=== PATIENT | female | born 1945 | race Caucasian/White ===

== ENCOUNTER 2017-09-13 07:25 | Day surgery (SDC) | payer OTHER ==
[~2017-09-13] VITALS: Ht 165.1 cm; Wt 112.0 kg
[~2017-09-13 07:25] MED LIST: ALBU90OI61 INH; AZIT250 PO; HYDACE5 PO; LORPSEER24 PO; PRED20 PO
== END 2017-09-13 14:32 | disposition home or self-care (01) ==
LOC: MHTC 07:25
PROC: 0JH606Z Insertion of Pacemaker, Dual Chamber into Chest Subcutaneous Tissue and Fascia, Open Approach (ICD-10-PCS; principal; 2017-09-13)
PROC: 0JPT0PZ Removal of Cardiac Rhythm Related Device from Trunk Subcutaneous Tissue and Fascia, Open Approach (ICD-10-PCS; principal; 2017-09-13)
DX: Z45.010 Encounter for checking and testing of cardiac pacemaker pulse generator [battery] (principal); K21.9 Gastro-esophageal reflux disease without esophagitis; Z87.891 Personal history of nicotine dependence; I10 Essential (primary) hypertension
CPT/HCPCS: 33228; 93005; 93010; 99152; 99153; C1785; J0690; J1644; J2250; J2405; J3010; J7030; J7040

== ENCOUNTER → 2019-09-12 | Outpatient (CLI) | payer OTHER | END | disposition home or self-care (01) | LOC: LAB SHORT 15:49 → LAB EV 15:49 | DX: R31.21 Asymptomatic microscopic hematuria (principal) | CPT/HCPCS: 87086 ==

== ENCOUNTER 2020-07-25 13:46 | Emergency (ER) | payer OTHER ==
[~2020-07-25] VITALS: Ht 167.6 cm; Wt 97.5 kg
[2020-07-25 14:17] LABS: BASOPHILS ABSOLUTE AUTO 0.04 K/mm3 (0.00-0.23); BASOPHILS PERCENT AUTO 0 % (0-2); EOSINOPHILS ABSOLUTE AUTO 0.12 K/mm3 (0.00-0.68); EOSINOPHILS PERCENT AUTO 1 % (0-6); Hematocrit 41.5 % (33.0-51.0); Hemoglobin 12.7 g/dL (11.5-16.0); IMMATURE GRAN ABSOLUTE AUTO 0.03 K/mm3 (0.00-0.10); IMMATURE GRAN PERCENT AUTO 0 % (0-1); LYMPHOCYTES ABSOLUTE AUTO 2.13 K/mm3 (0.84-5.20); LYMPHOCYTES PERCENT AUTO 22 % (21-46); MONOCYTES ABSOLUTE AUTO 0.58 K/mm3 (0.16-1.47); MONOCYTES PERCENT AUTO 6 % (4-13); Mean Corpuscular HGB 27.9 pg (26.0-34.0); Mean Corpuscular HGB Conc 30.6 g/dL (31.5-36.5); Mean Corpuscular Volume 91 fL (80-100); Mean Platelet Volume 9.3 fL (9.1-12.4); NEUTROPHILS ABSOLUTE AUTO 6.81 K/mm3 (1.96-9.15); NEUTROPHILS PERCENT AUTO 70 % (41-73); Platelet Count 391 K/mm3 (150-400); RDW Coefficient Variation 14.2 % (11.7-14.2); RDW Standard Deviation 47.7 fL (35.1-46.3); Red Blood Cell Count 4.56 M/mm3 (3.80-5.20); White Blood Cell Count 9.71 K/mm3 (4.00-11.30)
[2020-07-25 14:35] LABS: Alanine Aminotransfer (ALT/SGP 17 U/L (12-78); Albumin, Blood 3.1 g/dL (3.4-5.0); Albumin/Globulin Ratio 0.8 (0.8-1.8); Alk Phos 84 U/L (50-136); Anion Gap 7 mmol/L (6-16); Aspartate Aminotrans (AST/SGOT 17 U/L (12-37); Bilirubin, Total 0.7 mg/dL (0.1-1.0); Blood Urea Nitrogen 15 mg/dL (8-24); Bun/Creatinine Ratio 18.3 (12.0-20.0); CO2, Blood 26 mmol/L (21-32); Calcium, Blood 8.3 mg/dL (8.5-10.1); Chloride, Blood 111 mmol/L (98-108); Creatinine, Blood 0.82 mg/dL (0.40-1.00); Globulin, Blood 3.8 g/dL (2.2-4.0); Glomerular Filtration Rate >60 (60-); Glucose, Blood 110 mg/dL (70-99); Potassium, Blood 3.7 mmol/L (3.5-5.5); Sodium, Blood 144 mmol/L (136-145); Total Protein, Blood 6.9 g/dL (6.4-8.2)
[2020-07-25] MEDS ORDERED: GARLIC200 MG PO (15:30)
[2020-07-25] MEDS ORDERED: MULTI-VITAMIN1 EAC2 PO (15:30)
[2020-07-25] MEDS ORDERED: CALCIUM CIT 311 EACH PO (15:31)
[2020-07-25 16:26] LABS: Source, Urine Clean Catch
[2020-07-25 16:31] LABS: Appearance, Urine Clear (Clear); Bilirubin, Urine Neg (Neg); Blood, Urine 3+ (Neg); Color, Urine Yellow (P-Yellow); Glucose Qualitative, Urine Neg (Neg); Ketones, Urine 2+ (Neg); Leukocyte Esterase, Urine Neg (Neg); Nitrite, Urine Neg (Neg); Protein, Urine Neg (Neg); Urobilinogen, Urine NORM (Normal)
[2020-07-25 16:41] LABS: Bacteria Not Seen /hpf; Squamous Epithelial Cells Rare /hpf (Few); White Blood Cells, Urine Not Seen /hpf (0-5)
[2020-10-23] MEDS ORDERED: MULVITA PO (16:29)
[2020-10-23] MEDS ORDERED: XARELTO20 MG PO ×2 (16:30)
[2020-11-20] MEDS ORDERED: Ondansetron Odt8 MG SL (12:40)
[2020-11-20] MEDS ORDERED: MULVITA PO (12:40)
== END 2020-07-25 18:50 | disposition home or self-care (01) ==
LOC: ER 13:46
PROVIDERS: Physician Assistant
DX: K92.1 Melena (principal); K64.9 Unspecified hemorrhoids; Z87.891 Personal history of nicotine dependence
CPT/HCPCS: 36415; 80053; 81001; 82272; 84484; 85025; 86850; 86900; 86901; 93005; 93010; 99283-25

== ENCOUNTER → 2020-08-25 | Outpatient (CLI) | payer OTHER ==
[~2020-08-25] MED LIST changes: +CALCIUM CIT 311 EACH PO; +GARLIC200 MG PO; +Garlic500 MG PO; +LOPE2C PO; +MULTI-VITAMIN1 EAC2 PO; +MULVITA PO; +Ondansetron Odt8 MG SL; +UBID10 PO; +VITAMIN D3 PO; +XARELTO15 M1 PO; +XARELTO20 MG PO
== END | disposition home or self-care (01) ==
LOC: PLD 14:40 → LAB SHORT 14:40
DX: C44.319 Basal cell carcinoma of skin of other parts of face (principal)
CPT/HCPCS: 88305

== ENCOUNTER 2020-09-12 11:45 | Inpatient (IN) | payer OTHER, MEDICARE ==
[~2020-09-12] VITALS: Ht 167.6 cm; Wt 94.0 kg
[~2020-09-12 11:45] MED LIST changes: -Garlic500 MG PO; -LOPE2C PO; -MULVITA PO; -Ondansetron Odt8 MG SL; -UBID10 PO; -VITAMIN D3 PO; -XARELTO15 M1 PO; -XARELTO20 MG PO
[2020-09-12 12:46] LABS: BASOPHILS ABSOLUTE AUTO 0.04 K/mm3 (0.00-0.23); BASOPHILS PERCENT AUTO 0 % (0-2); EOSINOPHILS ABSOLUTE AUTO 0.08 K/mm3 (0.00-0.68); EOSINOPHILS PERCENT AUTO 1 % (0-6); Hematocrit 41.6 % (33.0-51.0); Hemoglobin 13.1 g/dL (11.5-16.0); IMMATURE GRAN ABSOLUTE AUTO 0.05 K/mm3 (0.00-0.10); IMMATURE GRAN PERCENT AUTO 0 % (0-1); LYMPHOCYTES ABSOLUTE AUTO 1.59 K/mm3 (0.84-5.20); LYMPHOCYTES PERCENT AUTO 11 % (21-46); MONOCYTES ABSOLUTE AUTO 0.64 K/mm3 (0.16-1.47); MONOCYTES PERCENT AUTO 4 % (4-13); Mean Corpuscular HGB 27.3 pg (26.0-34.0); Mean Corpuscular HGB Conc 31.5 g/dL (31.5-36.5); Mean Corpuscular Volume 87 fL (80-100); Mean Platelet Volume 9.4 fL (9.1-12.4); NEUTROPHILS PERCENT AUTO 84 % (41-73); Platelet Count 373 K/mm3 (150-400); RDW Coefficient Variation 14.4 % (11.7-14.2); RDW Standard Deviation 45.5 fL (35.1-46.3); Red Blood Cell Count 4.79 M/mm3 (3.80-5.20)
[2020-09-12 13:06] LABS: Alanine Aminotransfer (ALT/SGP 17 U/L (12-78); Albumin/Globulin Ratio 0.8 (0.8-1.8); Alk Phos 82 U/L (50-136); Anion Gap 6 mmol/L (6-16); Aspartate Aminotrans (AST/SGOT 14 U/L (12-37); Bilirubin, Total 0.9 mg/dL (0.1-1.0); Blood Urea Nitrogen 9 mg/dL (8-24); Bun/Creatinine Ratio 10.3 (12.0-20.0); CO2, Blood 27 mmol/L (21-32); Calcium, Blood 8.8 mg/dL (8.5-10.1); Chloride, Blood 108 mmol/L (98-108); Creatinine, Blood 0.88 mg/dL (0.40-1.00); Glomerular Filtration Rate >60 (60-); Glucose, Blood 175 mg/dL (70-99); Potassium, Blood 4.1 mmol/L (3.5-5.5); Sodium, Blood 141 mmol/L (136-145); Troponin I 0.217 ng/mL (0.000-0.040)
[2020-09-12] MEDS ORDERED: UBID10 PO (14:20)
[2020-09-12 14:52] LABS: International Normalized Ratio 1.02; Prothrombin Time Results 10.9 Sec (9.7-11.5)
[2020-09-12 15:19] LABS: Influenza A, PCR NEGATIVE (NEGATIVE); Influenza B, PCR NEGATIVE (NEGATIVE); Resp Syncytial Virus, PCR NEGATIVE (NEGATIVE); SARS-Cov-2 (COVID-19) PCR, MMC NEGATIVE (NEGATIVE)
--- NOTE | 2020-09-12 17:05 | NUR ---
ECHOCARDIOGRAM COMPLETE
--- NOTE | 2020-09-12 18:35 | NUR ---
ADMIT TO PCU/SHIFT SUMMARY: ADMIT TO PCU AT 1752 VIA GURNEY. PT ON ROOM AIR SATING ABOVE 92%. TELE SHOWING 100% VENTRICULAR PACED AT 95. ALERT AND ORIENTED X4. DENIES ANY PAIN. NO CURRENT CHEST PAIN OR SOB. PT STATES SHE ONLY HAD THE EPISODE OF SOB PRIOR TO COMING INTO THE ER. VITAL SIGNS STABLE. HEPARIN AND NS INFUSING. PT ORIENTED TO ROOM, CALL LIGHT AND EDUCATION ON FALL PREVENTION. PT EDUCATED ABOUT PULMONARY EMBOLI AND PURPOSE OF HEPARIN. WILL CONTINUE TO MONITOR AND REPORT OFF.
[2020-09-13 04:22] LABS: BASOPHILS ABSOLUTE AUTO 0.04 K/mm3 (0.00-0.23); BASOPHILS PERCENT AUTO 0 % (0-2); EOSINOPHILS PERCENT AUTO 1 % (0-6); Hematocrit 35.8 % (33.0-51.0); Hemoglobin 11.3 g/dL (11.5-16.0); IMMATURE GRAN ABSOLUTE AUTO 0.04 K/mm3 (0.00-0.10); IMMATURE GRAN PERCENT AUTO 0 % (0-1); LYMPHOCYTES ABSOLUTE AUTO 2.96 K/mm3 (0.84-5.20); LYMPHOCYTES PERCENT AUTO 26 % (21-46); MONOCYTES ABSOLUTE AUTO 0.63 K/mm3 (0.16-1.47); MONOCYTES PERCENT AUTO 6 % (4-13); Mean Corpuscular HGB 27.2 pg (26.0-34.0); Mean Corpuscular HGB Conc 31.6 g/dL (31.5-36.5); Mean Corpuscular Volume 86 fL (80-100); Mean Platelet Volume 9.6 fL (9.1-12.4); NEUTROPHILS ABSOLUTE AUTO 7.43 K/mm3 (1.96-9.15); NEUTROPHILS PERCENT AUTO 66 % (41-73); Platelet Count 310 K/mm3 (150-400); RDW Coefficient Variation 14.7 % (11.7-14.2); Red Blood Cell Count 4.15 M/mm3 (3.80-5.20)
--- NOTE | 2020-09-13 04:31 | NUR ---
SHIFT SUMMARY NO ACUTE CHANGES THIS SHIFT. VSS. HAS DENIED ANY EPISODE OF DYSPNEA/CP. REMAINS AXO. 100% V PACED. ON RA. HEPARIN GTT INFUSING, TITRATING PER PHARMACY. PT TO BSC MULTIPLE TIMES THIS SHIFT WITHOUT INCIDENT. ITHERWISE, PT RESTING IN ROOM QUIETELY. WILL CONTINUE TO MONITOR UNTIL SHIFT CHANGE.
[2020-09-13 04:47] LABS: Albumin, Blood 2.4 g/dL (3.4-5.0); Anion Gap 5 mmol/L (6-16); Blood Urea Nitrogen 8 mg/dL (8-24); Bun/Creatinine Ratio 9.9 (12.0-20.0); CO2, Blood 27 mmol/L (21-32); Calcium, Blood 8.1 mg/dL (8.5-10.1); Chloride, Blood 111 mmol/L (98-108); Cholesterol 131 mg/dL (50-200); Creatinine, Blood 0.81 mg/dL (0.40-1.00); Glomerular Filtration Rate >60 (60-); Glucose, Blood 106 mg/dL (70-99); HDL Cholesterol 33 mg/dL (>39); LDL/HDL RATIO 2.1; Low Density Lipoprotein Chol 69 mg/dL (0-110); Phosphorus, Blood 3.2 mg/dL (2.5-4.9); Sodium, Blood 143 mmol/L (136-145); Triglycerides 145 mg/dL (30-160); Troponin I 0.477 ng/mL (0.000-0.040); Very Low Density Lipoprot Chol 29 mg/dL (6-32)
--- NOTE | 2020-09-13 17:39 | NUR ---
SHIFT SUMMARY: PT ALERT AND ORIENTED X4. ON ROOM AIR SATING ABOVE 92%. TELE SHOWING SINUS RHYTHM. DENIES ANY CHEST PAIN OR SOB. PT STATES "I FEEL GREAT". ABLE TO SHOWER TODAY AND AMBULATE AROUND THE ROOM. DENIES ANY DIZZINESS/SOB WITH ACTIVITY. VITAL SIGNS STABLE. NO ACUTE CHANGES. STARTED ON XARELTO THIS AM. EDUCATED ON SAFETY, CALL LIGHT AND FALL PREVENTION. BED REMAINED IN LOW LOCKED POSITION. IV'S SALINE LOCKED AND FLUSHING WELL. WILL CONTINUE TO MONITOR AND REPORT OFF.
[2020-09-14 04:04] LABS: BASOPHILS ABSOLUTE AUTO 0.04 K/mm3 (0.00-0.23); BASOPHILS PERCENT AUTO 0 % (0-2); EOSINOPHILS ABSOLUTE AUTO 0.19 K/mm3 (0.00-0.68); EOSINOPHILS PERCENT AUTO 2 % (0-6); Hematocrit 40.2 % (33.0-51.0); Hemoglobin 12.5 g/dL (11.5-16.0); IMMATURE GRAN ABSOLUTE AUTO 0.05 K/mm3 (0.00-0.10); IMMATURE GRAN PERCENT AUTO 0 % (0-1); LYMPHOCYTES ABSOLUTE AUTO 2.07 K/mm3 (0.84-5.20); LYMPHOCYTES PERCENT AUTO 16 % (21-46); MONOCYTES ABSOLUTE AUTO 0.83 K/mm3 (0.16-1.47); MONOCYTES PERCENT AUTO 6 % (4-13); Mean Corpuscular HGB 27.2 pg (26.0-34.0); Mean Corpuscular HGB Conc 31.1 g/dL (31.5-36.5); Mean Corpuscular Volume 88 fL (80-100); Mean Platelet Volume 9.4 fL (9.1-12.4); NEUTROPHILS ABSOLUTE AUTO 9.85 K/mm3 (1.96-9.15); NEUTROPHILS PERCENT AUTO 76 % (41-73); Platelet Count 331 K/mm3 (150-400); RDW Coefficient Variation 14.7 % (11.7-14.2); RDW Standard Deviation 47.3 fL (35.1-46.3); Red Blood Cell Count 4.59 M/mm3 (3.80-5.20); White Blood Cell Count 13.03 K/mm3 (4.00-11.30)
--- NOTE | 2020-09-14 04:58 | NUR ---
SHIFT SUMMARY NO ACUTE CHANGES THIS SHIFT. VSS. REMAINS AXO. ON RA. 100% V PACED. HAS DENIED CP/PRESSURE T/O SHIFT. HAS NOT PRESENTED SOB TO THIS RN. PT INDEPENDENT IN ROOM BUT SLEPT FOR MAJORITY OF SHIFT. PT STATES FEELING MUCH BETTER POST SHOWER ON DAY SHIFT. PT HAS SAID VERY LITTLE ABOUT NEW CANCER DX BUT THIS RN HAS NOT PRESSED IN ORDER TO ALLOW PT TO PROCESS. PT USING CALL LIGHT APPROPRIATELY. WILL CONTINUE TO MONITOR UNTIL SHIFT CHANGE.
[2020-09-14 05:24] LABS: Albumin, Blood 2.7 g/dL (3.4-5.0); Anion Gap 6 mmol/L (6-16); Blood Urea Nitrogen 10 mg/dL (8-24); Bun/Creatinine Ratio 11.5 (12.0-20.0); CO2, Blood 27 mmol/L (21-32); Calcium, Blood 8.5 mg/dL (8.5-10.1); Chloride, Blood 111 mmol/L (98-108); Creatinine, Blood 0.87 mg/dL (0.40-1.00); Glomerular Filtration Rate >60 (60-); Glucose, Blood 114 mg/dL (70-99); Phosphorus, Blood 3.4 mg/dL (2.5-4.9); Potassium, Blood 3.9 mmol/L (3.5-5.5); Sodium, Blood 144 mmol/L (136-145)
[2020-09-14] MEDS ORDERED: XARELTO20 MG PO (11:46)
[2020-09-14] MEDS ORDERED: XARELTO15 M1 PO (11:47)
--- NOTE | 2020-09-14 13:49 | NUR ---
DISCHARGE NOTE: PT ALERT AND ORIENTED X4. ON ROOM AIR SATING ABOVE 92%. VITAL SIGNS STABLE. TELE SHOWING 100% VENTRICULAR PACED WITH HR 90'S. DENIES ANY PAIN. PT STATES SHE IS "FEELNIG REALLY GOOD AN DGLAD TO BE GOING HOME". NO ACUTE CHANGES. DENIES SOB AND CHEST PAIN. HOME O2 EVAL DONE. DISCHARGE INSTRUCTIONS GONE OVER AND EDUCATION PROVIDED. QUESTIONS ANSWERED AND IV TAKEN OUT PER PROTOCOL. SON TO LOCAL COMPANY FLATBED TRUCK DRIVER PATIENT. WHEELED OUT TO CAR VIA WHEELCHAIR.
[2020-10-23] MEDS ORDERED: MULVITA PO (16:29)
[2020-10-23] MEDS ORDERED: XARELTO20 MG PO ×2 (16:30)
[2020-11-20] MEDS ORDERED: MULVITA PO (12:40)
[2020-11-20] MEDS ORDERED: Ondansetron Odt8 MG SL (12:40)
== END 2020-09-14 13:31 | disposition home or self-care (01) | DRG 176 ==
LOC: ER 11:45 → PCU 15:10 → ENPENDDIS 09-14 11:33 → PCU 09-14 13:31
PROVIDERS: Emergency Medicine; Physician Assistant; ADMIT Internal Medicine Gastroenterology
DX: I26.99 Other pulmonary embolism without acute cor pulmonale (principal); I27.20 Pulmonary hypertension, unspecified; Z20.822 Contact with and (suspected) exposure to COVID-19; R91.8 Other nonspecific abnormal finding of lung field; K76.9 Liver disease, unspecified
CPT/HCPCS: 0241U; 36415; 71046; 71260; 80053; 80061; 80069; 84484; 85025; 85610; 85730; 93005; 93010; 93306; 96374-59; 99285-25; A9270; J1644; J7030; Q9967

== ENCOUNTER 2020-09-14 19:25 | Emergency (ER) | payer OTHER ==
[~2020-09-14] VITALS: Ht 167.6 cm; Wt 90.7 kg
[~2020-09-14 19:25] MED LIST changes: +UBID10 PO; +XARELTO15 M1 PO; +XARELTO20 MG PO
[2020-09-14 19:59] LABS: BASOPHILS ABSOLUTE AUTO 0.05 K/mm3 (0.00-0.23); BASOPHILS PERCENT AUTO 0 % (0-2); EOSINOPHILS PERCENT AUTO 1 % (0-6); Hematocrit 39.4 % (33.0-51.0); Hemoglobin 12.2 g/dL (11.5-16.0); IMMATURE GRAN ABSOLUTE AUTO 0.06 K/mm3 (0.00-0.10); IMMATURE GRAN PERCENT AUTO 0 % (0-1); LYMPHOCYTES ABSOLUTE AUTO 2.16 K/mm3 (0.84-5.20); LYMPHOCYTES PERCENT AUTO 14 % (21-46); MONOCYTES ABSOLUTE AUTO 0.74 K/mm3 (0.16-1.47); MONOCYTES PERCENT AUTO 5 % (4-13); Mean Corpuscular HGB 27.4 pg (26.0-34.0); Mean Corpuscular Volume 88 fL (80-100); Mean Platelet Volume 9.4 fL (9.1-12.4); NEUTROPHILS ABSOLUTE AUTO 12.42 K/mm3 (1.96-9.15); NEUTROPHILS PERCENT AUTO 80 % (41-73); Platelet Count 365 K/mm3 (150-400); RDW Coefficient Variation 14.6 % (11.7-14.2); RDW Standard Deviation 47.8 fL (35.1-46.3); Red Blood Cell Count 4.46 M/mm3 (3.80-5.20); White Blood Cell Count 15.53 K/mm3 (4.00-11.30)
[2020-09-14 20:18] LABS: Alanine Aminotransfer (ALT/SGP 15 U/L (12-78); Albumin, Blood 2.7 g/dL (3.4-5.0); Albumin/Globulin Ratio 0.7 (0.8-1.8); Alk Phos 70 U/L (50-136); Anion Gap 8 mmol/L (6-16); Aspartate Aminotrans (AST/SGOT 18 U/L (12-37); Bilirubin, Total 0.9 mg/dL (0.1-1.0); Blood Urea Nitrogen 14 mg/dL (8-24); Bun/Creatinine Ratio 16.9 (12.0-20.0); CO2, Blood 23 mmol/L (21-32); Calcium, Blood 8.2 mg/dL (8.5-10.1); Chloride, Blood 110 mmol/L (98-108); Creatinine, Blood 0.83 mg/dL (0.40-1.00); Globulin, Blood 3.7 g/dL (2.2-4.0); Glomerular Filtration Rate >60 (60-); Glucose, Blood 181 mg/dL (70-99); Potassium, Blood 3.7 mmol/L (3.5-5.5); Sodium, Blood 141 mmol/L (136-145); Total Protein, Blood 6.4 g/dL (6.4-8.2)
[2020-10-23] MEDS ORDERED: MULVITA PO (16:29)
[2020-10-23] MEDS ORDERED: XARELTO20 MG PO ×2 (16:30)
[2020-11-20] MEDS ORDERED: MULVITA PO (12:40)
[2020-11-20] MEDS ORDERED: Ondansetron Odt8 MG SL (12:40)
== END 2020-09-14 21:52 | disposition home or self-care (01) ==
LOC: ER 19:25
PROVIDERS: Emergency Medicine
DX: K92.1 Melena (principal)
CPT/HCPCS: 36415; 80053; 85025; 86850; 86900; 86901; 93005; 93010; 94761; 99283-25

== ENCOUNTER 2020-10-28 06:58 | Day surgery (SDC) | payer OTHER ==
[~2020-10-28] VITALS: Ht 167.6 cm; Wt 87.1 kg
[~2020-10-28 06:58] MED LIST changes: +MULVITA PO
--- NOTE | 2020-10-28 07:17 | NUR ---
History, Chart, Medications and Allergies reviewed before start of procedure. Patient confirms NPO status and agrees with scheduled surgery. Lungs clear T/O to Auscultation. Reports taking all of colon prep with clear results. Patient States Post-Procedure ride home has been arranged with her son.
[2020-10-28] MEDS ORDERED: VITAMIN D3 PO (07:26)
--- NOTE | 2020-10-28 08:16 | NUR ---
10/28/20 0816 Adan Donald 3-LEAD EKG REVIEWED WITH PHYSICIAN PRIOR TO START OF PROCEDURE. History, Chart, Medications and Allergies reviewed before start of procedure.MONITOR INTACT WITH CONTINUOUS PULSE OXIMETRY AND INTERMITTENT BP.O2 VIA N/C INTACT THROUGHOUT SEDATION/PROCEDURE. HURRICAINE SPRAY TO OROPHARYX.Bite Block Placed.
--- NOTE | 2020-10-28 08:50 | NUR ---
History, Chart, Medications and Allergies reviewed before start of procedure. Patient confirms NPO status and agrees with scheduled surgery. Reports taking all of her colon prep with clear, yellow output. States she has saw lots of sediment in her last BM. Patient States Post-Procedure ride home has been arranged with her caregiver, Maylin Perales.
--- NOTE | 2020-10-28 09:47 | NUR ---
PATIENT FELT DIZZY WHEN GETTING DRESSED AND READY TO LEAVE. TUCKED BACK INTO BED AND GOT A SET OF VITALS. VSS. WARM BLANKETS PROVIDED.
--- NOTE | 2020-10-28 09:56 | NUR ---
Discharge instructions reviewed with patient. Patient verbalizes understanding. Copy given to patient to take home. DR. BAUER SPOKE WITH PATIENT REGARDING KEEPING FOLLOW UP APPOINTMENT AND FINDINGS OF SCOPE. ORDERS TO RESTART XARELTO TODAY.
--- NOTE | 2020-10-28 10:08 | NUR ---
Patient up to Ambulate independently. Gait steady. Patient States Post-Procedure ride home has been arranged. Discharged via wheelchair to private car for ride home. ALL BELONGINGS RETURNED TO PATIENT.
== END 2020-10-28 10:10 | disposition home or self-care (01) ==
LOC: ORSCMMR 06:58 → ORD 08:00 → ORSCMMR 08:00
PROVIDERS: Internal Medicine Gastroenterology
PROC: 0DB98ZX Excision of Duodenum, Via Natural or Artificial Opening Endoscopic, Diagnostic (ICD-10-PCS; principal; 2020-10-28 08:00)
PROC: 0DBL8ZX Excision of Transverse Colon, Via Natural or Artificial Opening Endoscopic, Diagnostic (ICD-10-PCS; principal; 2020-10-28 08:00)
PROC: 0DBP8ZX Excision of Rectum, Via Natural or Artificial Opening Endoscopic, Diagnostic (ICD-10-PCS; principal; 2020-10-28 08:00)
PROC: 0DBM8ZX Excision of Descending Colon, Via Natural or Artificial Opening Endoscopic, Diagnostic (ICD-10-PCS; principal; 2020-10-28 08:00)
PROC: 3E0H8KZ Introduction of Other Diagnostic Substance into Lower GI, Via Natural or Artificial Opening Endoscopic (ICD-10-PCS; principal; 2020-10-28 08:00)
PROC: 0DB78ZX Excision of Stomach, Pylorus, Via Natural or Artificial Opening Endoscopic, Diagnostic (ICD-10-PCS; principal; 2020-10-28 08:00)
PROC: 0DBK8ZX Excision of Ascending Colon, Via Natural or Artificial Opening Endoscopic, Diagnostic (ICD-10-PCS; principal; 2020-10-28 08:00)
DX: K62.5 Hemorrhage of anus and rectum (principal); C20 Malignant neoplasm of rectum; D12.3 Benign neoplasm of transverse colon; D12.2 Benign neoplasm of ascending colon; D12.4 Benign neoplasm of descending colon; I25.2 Old myocardial infarction; Z79.01 Long term (current) use of anticoagulants; C34.90 Malignant neoplasm of unspecified part of unspecified bronchus or lung; C78.7 Secondary malignant neoplasm of liver and intrahepatic bile duct; I26.99 Other pulmonary embolism without acute cor pulmonale
CPT/HCPCS: 88305; 88342; A9270; J2704; J3010; J7120

== ENCOUNTER 2020-11-20 14:32 | Inpatient (IN) | payer OTHER, MEDICARE ==
[~2020-11-20] VITALS: Ht 167.6 cm; Wt 92.6 kg
[~2020-11-20 14:32] MED LIST changes: +Ondansetron Odt8 MG SL; +VITAMIN D3 PO
[2020-11-20 15:48] LABS: Hematocrit 28.3 % (33.0-51.0); Hemoglobin 8.7 g/dL (11.5-16.0); Mean Corpuscular HGB 25.3 pg (26.0-34.0); Mean Corpuscular HGB Conc 30.7 g/dL (31.5-36.5); Mean Corpuscular Volume 82 fL (80-100); Mean Platelet Volume 9.3 fL (9.1-12.4); Platelet Count 69 K/mm3 (150-400); RDW Standard Deviation 44.9 fL (35.1-46.3); Red Blood Cell Count 3.44 M/mm3 (3.80-5.20)
[2020-11-20 16:13] LABS: Alanine Aminotransfer (ALT/SGP 26 U/L (12-78); Albumin, Blood 1.9 g/dL (3.4-5.0); Albumin/Globulin Ratio 0.5 (0.8-1.8); Alk Phos 217 U/L (50-136); Anion Gap 14 mmol/L (6-16); Aspartate Aminotrans (AST/SGOT 63 U/L (12-37); Bilirubin, Total 0.8 mg/dL (0.1-1.0); Blood Urea Nitrogen 34 mg/dL (8-24); Bun/Creatinine Ratio 17.2 (12.0-20.0); CO2, Blood 15 mmol/L (21-32); Calcium, Blood 7.5 mg/dL (8.5-10.1); Chloride, Blood 94 mmol/L (98-108); Creatinine, Blood 1.98 mg/dL (0.40-1.00); Globulin, Blood 3.7 g/dL (2.2-4.0); Glomerular Filtration Rate 26 (60-); Glucose, Blood 111 mg/dL (70-99); Potassium, Blood 4.6 mmol/L (3.5-5.5); Sodium, Blood 123 mmol/L (136-145); Total Protein, Blood 5.6 g/dL (6.4-8.2); Troponin I <0.015 ng/mL (0.000-0.040)
[2020-11-20 16:20] LABS: BASOPHILS PERCENT AUTO 0 % (0-2); EOSINOPHILS PERCENT AUTO 0 % (0-6); IMMATURE GRAN PERCENT AUTO 0 % (0-1); LYMPHOCYTES ABSOLUTE AUTO 0.26 K/mm3 (0.84-5.20); LYMPHOCYTES PERCENT AUTO 90 % (21-46); MONOCYTES ABSOLUTE AUTO 0.01 K/mm3 (0.16-1.47); MONOCYTES PERCENT AUTO 3 % (4-13); NEUTROPHILS ABSOLUTE AUTO 0.02 K/mm3 (1.96-9.15); NEUTROPHILS PERCENT AUTO 7 % (41-73)
[2020-11-20 16:21] LABS: White Blood Cell Count 0.29 K/mm3 (4.00-11.30)
[2020-11-20 17:20] LABS: BASOPHILS PERCENT MAN 0 % (0-2); EOSINOPHILS PERCENT MAN 0 % (0-6); LYMPHOCYTES % ATYPICAL MANUAL 8 % (0-0); LYMPHOCYTES ABSOLUTE MAN 0.29 K/mm3 (0.84-5.20); LYMPHOCYTES PERCENT MAN 92 % (21-46); MONOCYTES PERCENT MAN 0 % (4-13); TOTAL CELLS COUNTED 25
[2020-11-20] MEDS ORDERED: LOPE2C PO (17:26)
[2020-11-20 17:42] LABS: SEG NEUTROPHILS PERCENT MAN 0 % (41-73)
[2020-11-20 18:02] LABS: Source, Urine Catheter
[2020-11-20 18:07] LABS: Appearance, Urine Hazy (Clear); Blood, Urine 4+ (Neg); Color, Urine Red (P-Yellow); Glucose Qualitative, Urine Neg (Neg); Ketones, Urine 1+ (Neg); Leukocyte Esterase, Urine 1+ (Neg); Nitrite, Urine Pos (Neg); Protein, Urine 2+ (Neg); Urobilinogen, Urine 3+ (Normal)
[2020-11-20 18:14] LABS: Bilirubin, Urine 2+ (Neg)
[2020-11-20 18:17] LABS: Waxy Cast 0-2 /lpf (0)
[2020-11-20 18:18] LABS: Bacteria Many /hpf; Squamous Epithelial Cells Few /hpf (Few)
[2020-11-20 18:21] LABS: Calcium Oxalate Crystals Mod /hpf; Renal Epithelial Rare /hpf (0-Rare); Transitional Epithelial Cells Few /hpf (0-Rare)
[2020-11-20] MEDS ORDERED: Garlic500 MG PO (18:52)
[2020-11-20] MEDS ORDERED: UBID10 PO (18:52)
[2020-11-20 22:56] LABS: Source, Urine Catheter
[2020-11-20 22:58] LABS: Influenza A, PCR NEGATIVE (NEGATIVE); Influenza B, PCR NEGATIVE (NEGATIVE); Resp Syncytial Virus, PCR NEGATIVE (NEGATIVE); SARS-Cov-2 (COVID-19) PCR, MMC NEGATIVE (NEGATIVE)
[2020-11-20 23:02] LABS: Blood, Urine 5+ (Neg); Glucose Qualitative, Urine Neg (Neg); Ketones, Urine 1+ (Neg); Leukocyte Esterase, Urine 1+ (Neg); Nitrite, Urine Pos (Neg); Protein, Urine 3+ (Neg); Urobilinogen, Urine 2+ (Normal)
[2020-11-20 23:11] LABS: Appearance, Urine Cloudy (Clear); Bilirubin, Urine 1+ (Neg); Color, Urine Amber (P-Yellow)
[2020-11-20 23:12] LABS: Amorphous Mod (0-Heavy); Bacteria Many /hpf; Red Blood Cells, Urine 50-100 /hpf (0-2); Squamous Epithelial Cells Few /hpf (Few)
[2020-11-20 23:13] LABS: Granular Casts 50-100 /lpf (0)
[2020-11-20 23:24] LABS: Base Excess Venous -10.9 mmol/L; PCO2 Venous 43.1 mmHg (38-42); PO2 Venous 50.4 mmHg (38-42); pH Blood Venous 7.21 (7.34-7.37)
[2020-11-21 00:53] LABS: Albumin, Blood 1.2 g/dL (3.4-5.0); Albumin/Globulin Ratio 0.5 (0.8-1.8); Bilirubin, Total 0.7 mg/dL (0.1-1.0); Bun/Creatinine Ratio 19.8 (12.0-20.0); Calcium, Blood 7.4 mg/dL (8.5-10.1); Creatinine, Blood 1.77 mg/dL (0.40-1.00); Globulin, Blood 2.6 g/dL (2.2-4.0); International Normalized Ratio 2.49; Potassium, Blood 3.9 mmol/L (3.5-5.5); Prothrombin Time Results 25.5 Sec (9.7-11.5); Total Protein, Blood 3.8 g/dL (6.4-8.2); Troponin I 0.018 ng/mL (0.000-0.040)
[2020-11-21 04:21] LABS: Hematocrit 23.1 % (33.0-51.0); Hemoglobin 7.4 g/dL (11.5-16.0); Mean Corpuscular HGB 25.1 pg (26.0-34.0); Mean Corpuscular Volume 78 fL (80-100); Mean Platelet Volume 11.5 fL (9.1-12.4); RDW Coefficient Variation 14.9 % (11.7-14.2); RDW Standard Deviation 42.9 fL (35.1-46.3); Red Blood Cell Count 2.95 M/mm3 (3.80-5.20)
[2020-11-21 04:23] LABS: BASOPHILS PERCENT AUTO 0 % (0-2); EOSINOPHILS PERCENT AUTO 0 % (0-6); IMMATURE GRAN PERCENT AUTO 0 % (0-1); LYMPHOCYTES ABSOLUTE AUTO 0.17 K/mm3 (0.84-5.20); LYMPHOCYTES PERCENT AUTO 90 % (21-46); MONOCYTES ABSOLUTE AUTO 0.01 K/mm3 (0.16-1.47); MONOCYTES PERCENT AUTO 5 % (4-13); NEUTROPHILS ABSOLUTE AUTO 0.01 K/mm3 (1.96-9.15); NEUTROPHILS PERCENT AUTO 5 % (41-73)
[2020-11-21 04:24] LABS: Platelet Count 23 K/mm3 (150-400); White Blood Cell Count 0.19 K/mm3 (4.00-11.30)
[2020-11-21 04:41] LABS: Magnesium, Blood 1.8 mg/dL (1.6-2.4)
[2020-11-21 04:42] LABS: Alanine Aminotransfer (ALT/SGP 30 U/L (12-78); Albumin, Blood 1.3 g/dL (3.4-5.0); Albumin/Globulin Ratio 0.5 (0.8-1.8); Alk Phos 143 U/L (50-136); Anion Gap 10 mmol/L (6-16); Aspartate Aminotrans (AST/SGOT 98 U/L (12-37); Bilirubin, Total 0.8 mg/dL (0.1-1.0); Blood Urea Nitrogen 33 mg/dL (8-24); Bun/Creatinine Ratio 21.2 (12.0-20.0); CO2, Blood 16 mmol/L (21-32); Calcium, Blood 7.1 mg/dL (8.5-10.1); Chloride, Blood 104 mmol/L (98-108); Creatinine, Blood 1.56 mg/dL (0.40-1.00); Globulin, Blood 2.7 g/dL (2.2-4.0); Glomerular Filtration Rate 35 (60-); Glucose, Blood 85 mg/dL (70-99); Potassium, Blood 3.9 mmol/L (3.5-5.5); Sodium, Blood 130 mmol/L (136-145); Vancomycin, Random 30.3 ug/mL
--- NOTE | 2020-11-21 05:24 | NUR ---
END OF SHIFT SUMMARY: PATIENT HAS REMAINED A/O X4 THROUGHOUT THE SHIFT AND IS CALM/COOPERATIVE WITH ALL PROCEDURES. PATIENT HAS REMAINED HYPOTENSIVE SINCE ADMISSION AND IS ON 14-15 OF LEVOPHED. PATIENT PALE AND SKIN IS COOL TO TOUCH. PATIENT RENAINS PACED AND WAS PLACED ON BIPAP FOR THE EVENING WHICH SHE DOES LIKE WEARING. PATIENT STATES SHE IS VERY WEAK AND HASN'T HAD MUCH OF AN APPETITE. R FEM CENTRAL LINE, VALIENTE CATHETER, AND A DIGNISHIELD WERE PLACED OVERNIGHT. LACTATE 2.2. WILL CONTINUE TO MONITOR.
--- NOTE | 2020-11-21 09:00 | NUR ---
DOCTOR NATY AND DR. BRAND IN TO SEE PATIENT. DR. ALFONSO UPDATED ON PATIENT STATUS. NO ORDERS RECEIVED.
--- NOTE | 2020-11-21 09:30 | NUR ---
DR. POWELL UPDATED ON PATIENT STATUS. INFORMED THAT PATIENT UP TO 15 MCG/ MINUTE OF LEVOPHED DURING NIGHT. INFORMED THAT PATIENT HAS TEMP OF 100.0 DEGREES FAHRENHEIT. INFORMED THAT PATIENT PLACED ON BIPAP AROUND 0300 AFTER ABG. INFORMED THAT GI PANEL CANCELLED ON CORPORATE STRATEGY ANALYST. INFORMED THAT 1 UNIT PRBC GIVEN EARLY THIS AM. INFORMED THAT PATIENT BLOOD CULTURES POSITIVE FOR GRAM NEGATIVE BACILLI X 2. INFORMED THAT PATIENT COMPLAINS OF TENDERNESS IN ABD. INFORMED THAT BLES MOTTLED.
--- NOTE | 2020-11-21 10:00 | NUR ---
INITIAL ASSESSMENT PATIENT ALERT AND ORIENTED X 4. PATIENT CALM AND COOPERATIVE. PATIENT DOES APPEAR DEPRESSED, FLAT AFFECT. PATIENT WEAK BUT ABLE TO MOVE ALL EXTREMITIES AND ASSIST WITH REPOSITIONING. PATIENT HAS CORE TEMP OF 100.0 DEGREES FAHRENHEIT. PATIENT DOES STATE SHE HAS CHRONIC LOWER BACK PAIN AND ACUTE ABDOMINAL PAIN. PATIENT SATTING 90% AND GREATER ON 4 L NC OR BIPAP 10/5. LUNGS CLEAR. LOWER LOBES DIMINISHED. RR HIGH 20S TO HIGH 30S. PATIENT SOB WITH TALKING AND EXERTION. PATIENT 100% PACED. HR 90S TO LOW 100S. SBP 90S TO 130S. PATIENT ON LEVOPHED DRIP AT 12 MCG/ MINUTE. PULSES FAINT. SCDS IN PLACE. ABDOMEN MODERATELY DISTENDED, FIRM, TENDER, WITH HYPOACTIVE BS NOTED. RECTAL TUBE IN PLACE DRAINING BROWN, LIQUID STOOL. PATIENT HAS POOR APPETITE. VALIENTE IN PLACE DRAINING DARK YELLOW COLORED URINE. SKIN PALE, DRY. SCATTERED BRUISES NOTED. COCCYX REDDENED. STAGE 2 ULCER TO R BUTTOCKS. BLE MOTTLED. NS INFUSING AT 100 MLS/ HOUR. PATIENT RECEIVED 1 UNITS PRBCS THIS AM. BED LOW, CALL LIGHT IN REACH. WILL CONTINUE TO MONITOR PATIENT FREQUENTLY THROUGHOUT SHIFT.
--- NOTE | 2020-11-21 10:37 | NUR ---
Called to meet with patient to review her conversation with her oncologist. Pt fatigued and distraught over visit. She is thingking she may not want to try any further treatment. Pt is rosalio and ashen and has long inpritory phase complains of shorness fo breath. pt denies headache or ringing in her ears . denies nausea but feels pressure in epgartirc area and pressure in her pelvis aon on her bello. Careful converstion to facilitate her expressions of grief and stress. She did not want to speak to her son yet. She stated her daughter in law will call this morning. 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 Pt recievieng blood products. Discussed pt in rounds with truck guard and nursing. Plan is to have family come in for decision making. We discussed code status and current treatment the hope is we can get her through this event. Encouraged them to speak with her about life support and code status and supportive vist for her extreme stress. PPs score is 40% pt at risk for worsening suffering if further metabloic decline. WIll monitor closely.
[2020-11-21 11:53] LABS: Adenovirus F 40/41 Not Detected (NOT DETECT); Astrovirus Not Detected (NOT DETECT); Campylobacter Sp Not Detected (NOT DETECT); Cryptosporidium Not Detected (NOT DETECT); Cyclospora Cayetanensis Not Detected (NOT DETECT); E. Coli O157 Not Detected (NOT DETECT); Entamoeba Histolytica Not Detected (NOT DETECT); Enteroaggregative E. coli-EAEC Not Detected (NOT DETECT); Enteropathogenic E. coli-EPEC Not Detected (NOT DETECT); Enterotoxigenic E. coli-ETEC Not Detected (NOT DETECT); Giardia Lamblia Not Detected (NOT DETECT); Norovirus GI/GII Not Detected (NOT DETECT); Plesiomonas Shigelloides Not Detected (NOT DETECT); Rotavirus A Not Detected (NOT DETECT); Salmonella Sp Not Detected (NOT DETECT); Sapovirus Not Detected (NOT DETECT); Shiga Toxin-prod E. coli-STEC Not Detected (NOT DETECT); Shigella/Enteroin E. coli-EIEC Not Detected (NOT DETECT); Vibrio Cholerae Not Detected (NOT DETECT); Vibrio Sp Not Detected (NOT DETECT); Yersinia Enterocolitica Not Detected (NOT DETECT)
--- NOTE | 2020-11-21 12:31 | NUR ---
PATIENT HAS TEMP OF 99.8 DEGREES FAHRENHEIT. LUNGS DIMINISHED THROUGHOUt. PATIENT FEELING MORE SHORT OF BREATH THAN IN THE AM. PATIENT ON 15L OXYMIZER TO KEEP SATS 90% AND GREATER. FAMILY IN ROOM AND VISITING IS MAKING BREATHING HARDER. RR UP TO THE 40S. RT INFORMED. HR 90S TO LOW 100S. SBP 70S TO 90S. LEVOPHED AT 15 MCG/ MINUTE AND VASOPRESSIN NOW ADDED. PATIENT HAS HAD SOME BLEEDING FROM REPORTED ANUS. PATIENT REPORTS HEMORRHOIDS. DR. POWELL INFORMED. H AND H ORDERED FOR 1600. PATIENT DNR STATUS AFTER MEETING WITH PATIENT, FAMILY AND PALLIATIVE CARE NURSE. NO OTHER ACUTE CHANGES TO NOTE ON AT THIS TIME. WILL CONTINUE TO MONITOR.
--- NOTE | 2020-11-21 14:06 | NUR ---
pt passed peacfully magnet for icd protection. family chose jailyn and amelia sent with patient.
[2020-11-21 16:18] LABS: Hematocrit 25.1 % (33.0-51.0); Hemoglobin 8.4 g/dL (11.5-16.0)
--- NOTE | 2020-11-21 16:30 | NUR ---
PATIENT HAS TEMP OF 99.8 DEGREES FAHRENHEIT. PATIENT SATTING 90% AND GREATER ON 2 L NC OR BIPAP /. PATIENT DOES NOT APPEAR TO BE WORKING HARD TO BREATH. SBP LOW 100S TO 120S. LEVOPHED AT 6 MCG/ MINUTE AND VASOPRESSIN AT 0.04 UNITS/ MINUTE. PATIENT GIVEN PRN TYLENOL FOR COMPLAINTS OF HEMORRHOIDAL PAIN. PATIENT RECEIVED COMPLETE BED BATH. NO OTHER ACUTE CHANGES TO NOTE ON AT THIS TIME. WILL CONTINUE TO MONITOR.
--- NOTE | 2020-11-21 18:30 | NUR ---
SHIFT SUMMARY PATIENT REMAINED ALERT AND ORIENTED. PATIENT REMAINS DEPRESSED, WITH FLAT AFFECT. PATIENT HAD TMAX OF 100.0 DEGREES FAHRENHEIT. PATIENT WEAK BUT ABLE TO HELP WITH REPOSITIONING. PATIENT HAD COMPLAINTS OF LOWER BACK, ABDOMINAL, AND HEMORRHOID PAIN THIS SHIFT. PATIENT GIVEN PRN TYLENOL AND REPORTED RELIEF AFTER ADMINISTRATION. LUNGS DIMINISHED THIS SHIFT. PATIENT ON 4 L NC OR BIPAP 10/5 AT BEGINNING OF SHIFT. PATIENT BECAME VERY SOB AND DESATTED AFTER HAVING VISIT AND CONVERSATION ABOUT FUTURE PLAN OF CARE. PATIENT HAD TO BE INCREASED UP TO 15 L OXYMIZER WHILE SPEAKING WITH FAMILY. PATIENT PLACED BACK ON BIPAP AFTERWARDS. PATIENT ABLE TO BE SLOWLY TITRATED BACK DOWN AND IS NOW ON 2 L NC AND SATTING 90% AND GREATER. PATIENT HAS REMAINED 100% PACED. HR 90S TO LOW 100S. SBP 70S TO 130S. LEVOPHED RANGED FROM 5 TO 15 MCG/ MINUTE; CURRENTLY AT 5 MCG/ MINUTE. VASOPRESSIN ADDED THIS SHIFT; CURRENTLY ON SB. PATIENT HAD POOR APPETITE. PATIENT DID EAT SOUP 2 X WHEN NURSE ORDERED VIA FOOD REQUEST. PATIENT HAD 1000 MLS OUT OF RECTAL TUBE. CONTINUES TO REPORT THAT ABDOMEN IS TENDER. VALIENTE DRAINED 1,340 MLS OF DARK YELLOW COLORED URINE WITH SEDIMENT NOTED. NO CHANGES TO SKIN. PATIENT REPOSITIONED Q2H. NS REMAINS INFUSING AT 100 MLS/ HOUR. PATIENT CONTINUES TO RECEIVE ANTIBIOTICS. PATIENT HAD 1 UNIT PRBCS THIS AM. HGB CAME UP A POINT. GI PANEL SENT TO LAB THIS SHIFT. ECHO AND US RENAL WITH BLADDER PERFORMED THIS SHIFT. XARELTO DC'D FOR LOW PLATELETS. PATIENT HAD COMPLETE BED BATH. PATIENT HAS NO COMPLAINTS AT THIS TIME. BED LOW, CALL LIGHT IN REACH. WILL BE GIVING REPORT TO ONCOMING DEBIT AGENT NURSE SHORTLY.
--- NOTE | 2020-11-21 19:31 | NUR ---
ASSUMED CARE THIS STUDENT NURSE ASSUMED CARE OF THIS PT AT 1900. PT IS LYING IN BED AWAKE; ALERT AND ORIENTED. VASOPRESSIN ON SB, LEVOPHED INFUSING @ 5 MCG/KG/MIN, AND NS @ 100ML/HR INTO RT GROIN CL. REPOSITIONING OFFERED TO PT AND PT DECLINED. WILL CONTINUE TO MONITOR.
[2020-11-21 20:55] LABS: Vancomycin, Random 7.4 ug/mL
--- NOTE | 2020-11-22 05:29 | NUR ---
END OF SHIFT SUMMARY PT REMAINS ALERT AND ORIENTED AND ABLE TO MAKE NEEDS KNOWN TO STAFF. PROTONIX 40MG IV QD STARTED BY DR. RIVERO D/T PT COMPLAINTS OF INDIGESTION NOT RELIEVED BY TUMS. SBP REMAINED STABLE AT 100-110'S ON LEVOPHED; NOW ON SB. BIPAP WAS USED DURING THE NIGHT FOR SLEEP AT 10/5 AND 4L NC WHILE AWAKE WITH SPO2 >90%. NS NOW AT TKO AND VASOPRESSIN ON SB. NO OTHER CHANGES THIS SHIFT. WILL CONTINUE TO MONITOR UNTIL REPORT GIVEN TO ONCOMING RN.
--- NOTE | 2020-11-22 06:40 | NUR ---
HOSPITALIST PLACED CALL TO HOSPITALIST SECONDARY TO NO LABS BEING ORDERED FOR THIS MORNING AND PT HAVING MORE MAROON COLORED STOOL. VSS AT THIS TIME WITH LEVOPHED ON STANDBY. DR. RIVERO STATED TO CALL [facility] PROVIDER THEY HAVE ASSUMED CARES AT THIS TIME. WILL PASS ON TO DAY RN TO REQUEST AM LABS WHEN PROVIDERS ROUND THIS MORNING.
--- NOTE | 2020-11-22 06:45 | NUR ---
MEDICAL IMAGING SPECIALIST DOCUMENTATION REVIEW: I HAVE READ AND AGREE WITH ALL NOTES ENTERED BY [facility] FOR THIS SHIFT.
--- NOTE | 2020-11-22 08:00 | NUR ---
INITIAL ASSESSMENT PATIENT SLEEPING UPON ENTERING ROOM. PATIENT WAKES TO NURSE VOICE. PATIENT VERY LETHARGIC THIS AM. PATIENT OPENS EYES WHEN NURSE SPEAKS TO PATIENT BUT THEN CLOSES THEM IMMEDIATELY AFTER AND ANSWERS QUESTIONS WITH EYES CLOSED. SLOW TO RESPOND. PATIENT IS ALERT AND ORIENTED X 4, AFEBRILE. PATIENT HAS FLAT AFFECT, DEPRESSED. PATIENT DENIES ANY PAIN OR DISCOMFORT. PATIENT SATTING 90% AND GREATER ON 2 L NC. RUL CLEAR, LOWER LOBES DIMINISHED, AND EXPIRATORY WHEEZE NOTED IN ALLISON. RR 20S TO 30S. PATIENT DOES NOT APPEAR TO HAVE ANY SOB THIS AM. PATIENT 100% PACED. HR 90S TO LOW 100S. SBP LOW 100S TO 1-TEENS. VASOPRESSIN AND LEVOPHED REMAIN ON SB FROM AIR TECHNICIAN. SCDS IN PLACE. ABDOMEN MODERATELY DISTENDED, FIRM, TENDER, WITH HYPOACTIVE BS NOTED. SOME RECTAL BLEEDING NOTED; PATIENT REPORTS SHE HAS HEMORRHOIDS. NIGH SHIFT REPORTED MAROON STOOL IN RECTAL TUBE. THIS NURSE VISUALIZES BROWN, LIQUID STOOL IN RECTAL TUBE AT THIS TIME. VALIENTE IN PLACE DRAINING DARK YELLOW COLORED URINE WITH SEDIMENT NOTED. STAGE 2 ULCER TO R BUTTOCKS- MEPILEX IN PLACE. BLE MOTTLED IN APPEARANCE. SKIN PALE AND DRY. SCATTERED BRUISES NOTED. L HAND HEMATOMA/ LARGE BRUISE NOTED. IV REMOVED FROM HAND ON AIR TECHNICIAN. NS TKO. BED LOW, CALL LIGHT IN REACH. WILL CONTINUE TO MONITOR PATIENT FREQUENTLY THROUGHOUT SHIFT.
[2020-11-22 09:08] LABS: Bun/Creatinine Ratio 28.2 (12.0-20.0); Calcium, Blood 6.9 mg/dL (8.5-10.1); Creatinine, Blood 1.1 mg/dL (0.40-1.00); Potassium, Blood 3.6 mmol/L (3.5-5.5)
[2020-11-22 09:13] LABS: Hematocrit 22.8 % (33.0-51.0); Hemoglobin 7.6 g/dL (11.5-16.0); Mean Corpuscular HGB Conc 33.3 g/dL (31.5-36.5); Mean Corpuscular Volume 78 fL (80-100); RDW Coefficient Variation 15.3 % (11.7-14.2); RDW Standard Deviation 43.7 fL (35.1-46.3); Red Blood Cell Count 2.92 M/mm3 (3.80-5.20)
[2020-11-22 09:29] LABS: Platelet Count 3 K/mm3 (150-400)
--- NOTE | 2020-11-22 09:30 | NUR ---
DR. POWELL UPDATED ON PATIENT STATUS. INFORMED OF WBC OF 0.10, PLATELET OF 3, HEMOGLOBIN OF 7.6. INFORMED THAT URINE CAME BACK POSITIVE FOR E.COLI. INFORMED THAT LEVOPHED AND VASOPRESSIN BOTH ABLE TO BE PLACED ON SB DURING CUSTOM FRAMING SPECIALIST. INFORMED THAT CUSTOM FRAMING SPECIALIST REPORTED LIQUID STOOL IN RECTAL TUBE TO APPEAR MAROON IN COLOR AND THAT THEY VISUALIZED CLOTS IN TUBE WELL. STOOL APPEARS BROWN IN COLOR TO THIS NURSE. INFORMED THAT PATIENT HAD 400 MLS OUT FROM RECTAL TUBE LAST NIGHT. INFORMED THAT PATIENT HAD OUT 550 MLS OF URINE FROM VALIENTE ON CUSTOM FRAMING SPECIALIST. INFORMED OF WEIGHT GAIN TODAY FROM YESTERDAY. INFORMED THAT CUSTOM FRAMING SPECIALIST PULLED IV FROM L HAND LAST NIGHT, NO LONGER PATENT, AND THAT HEMATOMA FORMED IN L HAND. ASKED TO TAKE A LOOK. INFORMED OF EF OF 35-40. ORDERS RECEIVED.
[2020-11-22 09:37] LABS: BASOPHILS PERCENT MAN 0 % (0-2); EOSINOPHILS PERCENT MAN 7 % (0-6); LYMPHOCYTES ABSOLUTE MAN 0.07 K/mm3 (0.84-5.20); LYMPHOCYTES PERCENT MAN 79 % (21-46); MONOCYTES PERCENT MAN 7 % (4-13); SEG NEUTROPHILS PERCENT MAN 7 % (41-73); TOTAL CELLS COUNTED 14
--- NOTE | 2020-11-22 11:00 | NUR ---
DR. ALFONSO IN ROOM TO SEE PATIENT. UPDATED ON PATIENT STATUS. ORDER FOR STRICT BEDREST FOR CRITICALLY LOW PLATELETS RECEIVED. NO OTHER ORDERS RECEIVED AT THIS TIME.
--- NOTE | 2020-11-22 12:30 | NUR ---
PATIENT AFEBRILE. NO COMPLAINTS OF PAIN OR DISCOMFORT. PATIENT SATTING 90% AND GREATER ON RA. BREATHS SHALLOW AND RR 20S TO 30S. HR LOW 100S TO 1-TEENS. SBP 90S TO 1-TEENS. HEMATOMA AND BRUISE TO L HAND REMAIN UNCHANGED. PATIENT REMAINS LETHARGIC AND SLEEPING. NO OTHER ACUTE CHANGES TO NOTE ON AT THIS TIME. WILL CONTINUE TO MONITOR.
--- NOTE | 2020-11-22 14:07 | NUR ---
DR. POWELL UPDATED ON PATIENT STATUS. INFORMED THAT HR UP TO 1-TEENS AND SBP LOW 90S. INFORMED THAT PATIENT PO INTAKE VERY POOR AND THAT PATIENT HAS NO MAINTENANCE FLUIDS RUNNING. REMINDED THAT EF IS ABOUT 35% AND THAT PATIENT DID RECEIVE A LOT OF FLUID UPON ADMIT. DR. POWELL STATED TO HOLD OFF ON FLUIDS FOR NOW. INFORM IF HR CONSISTENTLY UP IN 120S OR ABOVE. ORDERS FOR PCU STATUS RECEIVED.
--- NOTE | 2020-11-22 18:37 | NUR ---
SHIFT SUMMARY PATIENT SLEPT ALMOST THE ENTIRE SHIFT, EXCEPT FOR WHEN NURSE IN ROOM. PATIENT REMAINED LETHARGIC. PATIENT DID REMAIN ALERT AND ORIENTED X 4. PATIENT REMAINED WITH DEPRESSED, FLAT AFFECT. PATIENT REMAINED AFEBRILE. PATIENT HAD NO COMPLAINTS OF PAIN THIS SHIFT. PATIENT ON 2 L NC IN AM BUT SOON AFTER PLACED ON RA AND REMAINED SATTING 90% AND GREATER THE REST OF THE SHIFT. RESPIRATIONS DID REMAIN SHALLOW AND TACHYPNEIC, HOWEVER PATIENT DID NOT APPEAR SOB. PATIENT REMAINED PACED WITH HR 90S TO 1-TEENS. SBP 90S TO 1-TEENS. PATIENT ATE AND DRANK SCANT AMOUNTS THIS SHIFT. PATIENT HAD SOME RED/ PINK DRAINAGE THAT LEAKED FROM RECTUM AROUND RECTAL TUBE. STOOL IN RECTAL TUBE REMAINED BROWN AND LIQUID. PATIENT HAD OUT 400 MLS OF STOOL. VALIENTE DRAINED 500 MLS OF URINE. NO CHANGE TO SKIN THIS SHIFT. PATIENT REPOSITIONED Q2H. LEVO AND VASO DC'D. NS REMAINS TKO. PATIENT RECEIVED 1 UNIT PLATELETS THIS SHIFT. PATIENT HAS NO COMPLAINTS AT THIS TIME. BED LOW, CALL LIGHT IN REACH. REPORT WILL BE GIVEN TO ONCOMING LANDSCAPE MANAGER NURSE SHORTLY.
--- NOTE | 2020-11-22 20:45 | NUR ---
SHIFT ASSESSMENT ASSUMED CARE OF PT @ 1900. REPORT RECEIVED FROM MARIA ELENA HERNANDEZ. PT SLEEPING UPON INITIAL ASSESSMENT, WAKENS TO VERBAL STIMULI BUT QUICKLY BACK TO SLEEP. PT A&OX4 BUT SEEMS WITHDRAWN OR DEPRESSED. WITH HER RECENT DIAGNOSIS THIS SEEMS APPROPRIATE. CURRENTLY ON ROOM AIR c O2 SATS >90%. PACED RYTHM ON THE YARN TWISTER. BP WNL c PRESSORS ON STANDBY. TEMP PROBE VALIENTE CATH IN PLACE, DRAINING YELLOW URINE. RECTAL TUBE WITH SMALL AMOUNT OF LOOSE, BROWN STOOL. UNSTAGEABLE PRESSURE ULCER TO R BUTTOCK, MEPILEX DRESSING C/D/I. LARGE HEMATOMA TO LEFT HAND/ ARM FROM PREVIOUS IV. WILL CONTINUE TO MONITOR CLOSELY.
[2020-11-22 21:56] LABS: Vancomycin, Random 10.3 ug/mL
[2020-11-23 04:29] LABS: Hematocrit 22.1 % (33.0-51.0); Hemoglobin 7.4 g/dL (11.5-16.0); Mean Corpuscular HGB Conc 33.5 g/dL (31.5-36.5); Mean Corpuscular Volume 78 fL (80-100); Mean Platelet Volume 8.6 fL (9.1-12.4); RDW Coefficient Variation 15.6 % (11.7-14.2); RDW Standard Deviation 44.5 fL (35.1-46.3); Red Blood Cell Count 2.85 M/mm3 (3.80-5.20)
[2020-11-23 04:35] LABS: Platelet Count 6 K/mm3 (150-400); White Blood Cell Count 0.11 K/mm3 (4.00-11.30)
[2020-11-23 04:58] LABS: Albumin/Globulin Ratio 0.3 (0.8-1.8); Bilirubin, Total 1.9 mg/dL (0.1-1.0); Bun/Creatinine Ratio 30.8 (12.0-20.0); Creatinine, Blood 1.07 mg/dL (0.40-1.00); Globulin, Blood 3.1 g/dL (2.2-4.0); Magnesium, Blood 2.1 mg/dL (1.6-2.4); Phosphorus, Blood 3.6 mg/dL (2.5-4.9); Potassium, Blood 3.7 mmol/L (3.5-5.5); Total Protein, Blood 4.1 g/dL (6.4-8.2)
[2020-11-23 05:33] LABS: BASOPHILS PERCENT MAN 4 % (0-2); EOSINOPHILS PERCENT MAN 0 % (0-6); LYMPHOCYTES PERCENT MAN 92 % (21-46); MONOCYTES PERCENT MAN 4 % (4-13); TOTAL CELLS COUNTED 25
--- NOTE | 2020-11-23 06:21 | NUR ---
SHIFT SUMMARY PT REMAINS A&OX4. NO CHANGES IN PT RESPONSE, REMAINS LETHARGIC AND SOFT SPOKEN. MEDICATED c ONE DOSE OF 25MCG'S PRN FENTANYL FOR BACK/ HIP PAIN. SBP REMAINS STABLE WITHOUT PRESSORS. DURING THE NIGHT PT REFUSED BIPAP BUT SATS DROPPED TO 88/89% ON RA WHILE SLEEPING. PT ON 2-3LPM O2 VIA NC WHILE SLEEPING. VALIENTE CATH DRAINING YELLOW/BERENICE URINE. RECTAL TUBE DRAINING LOSE, GREENISH/BROWN STOOL. AM LABS SHOW CRITICALLY LOW PLATELET COUNT, ORDERS PLACED FOR 1U OF PLATELETS. NO OTHER SIGNIFICANT CHANGES IN PT CONDITION DURING THE NIGHT. WILL CONTINUE TO MONITOR CLOSELY.
--- NOTE | 2020-11-23 07:58 | NUR ---
PT IS SLEEPING SOUNDLY. O2 DEC FROM 3L TO 2L NC. PLATLETS INFUSED. VSS. NO RESP DISTRESS CURRENTLY. URINE IS CLEAR VIA VALIENTE CATH. PT NOW SPONT. MOVING AND WILL AROUSE AND ASSESS.
--- NOTE | 2020-11-23 10:17 | NUR ---
DR POWELL IN TO VISIT PT AND INDICATES SHE IS WEAKER TODAY THAN YESTERDAY. FAMILY HAS CALLED AND WILL COME IN TO VISIT.
--- NOTE | 2020-11-23 11:08 | NUR ---
LR 125 ML/HR ADDED PER ORDER. FAMILY AGAIN HAS CALLED AND COMING IN TO VISIT SOME FAMILY ARE OUT OF TOWN.
--- NOTE | 2020-11-23 13:07 | NUR ---
EXTRA FAMILY IN TO VISIT PT WHO IS VERY TIRED AND FATIGUED. PT VSS AND CONTINUES TO MAKE URINE.
--- NOTE | 2020-11-23 16:31 | NUR ---
PT HAS BEEN VERY FATIGED AND VERY MINIMAL INTERACTION EVEN WITH DIRECT QUESTIONS AND FAMILY VISITS. PT VSS. I/O NOTED. PT HAS RECIEVED GOOD ORAL CARE AND IS TAKING SIPS OF WATER BUT SMALL AMOUNTS. RECTAL TUBE REMAINS IN PLACE BUT SMALL AMOUNT THIS SHIFT. PT RESP STATUS REMAINS UNCHANGED AND STABLE ON 2L NC. FAMILY HAS BEEN IN AND OUT TO VISIT.
--- NOTE | 2020-11-23 19:39 | NUR ---
Discussion with attending physician after time with patient and family. Pt starting or progress and having more air hunger and discomfort less responsive and intermitant difficulty tracking conversation. Spent some theraputic time with pt after discussion with phsycian we looked out the window at the pond and ducks, had some ice chips. pt wanted to be truned after and was very uncomfortable with positioning. Called family and reviewed discussion and pt symptoms. Concern is gissel we may be getting into area of more suffering. Family was very much in agreement of comfort only. orders placed updated staff on pacemaker. pt pace id and type report on chart. no defibrilator just demand pacer.
--- NOTE | 2020-11-23 20:07 | NUR ---
PATIENT RESTING QUIETLY, AWAKENS TO VERBAL STIMULI, ANSWERING QUESTIONS WITH WHISPER VOICE. GENERALIZED WEAKNESS, ONLY MOVING EXTREMITIES SLIGHTLY. OXYGEN 2L/NC, PATIENT REF CPAP AT THIS TIME. RECTAL TUBE IN PLACE DRAINING LIQUID DARK BROWN STOOL. CENTRAL LINE TO RIGHT GROIN, WITH NS TKO.
--- NOTE | 2020-11-23 22:03 | NUR ---
PATIENT ATTEMPTING TO ASSIST WITH REPOSITIONING, EXTREME WEAKNESS CONTINUES. RECTAL TUBE REPOSITIONED AND AREA CLEANED ALONG WITH VALIENTE CARE. REPOSITIONING TO RIGHT SIDE.
--- NOTE | 2020-11-24 00:56 | NUR ---
PLAN TO MOVE PATIENT TO ROOM 208, REPORT CALLED TO DEE DEE ARREDONDO
--- NOTE | 2020-11-24 02:02 | NUR ---
PT TRANSFERRED TO ROOM 208 AT ABOUT 0145. PT PAINFUL WITH TRANSFER TO SURGICAL BED - MEDICATED PER ORDER. VALIENTE AND RECTAL TUBE IN PLACE. PT OPENS EYES TO VERBAL STIMULI BUT IS LETHARGIC. ON 2L O2 FOR COMFORT.
--- NOTE | 2020-11-24 04:25 | NUR ---
PT TRANSFERRED TO ROOM 208 THIS SHIFT. PT HAS BEEN LETHARGIC, OPENING EYES TO VERBAL STIMULI. MEDICATED FOR PAIN WITH 5MG ROXANOL X1 AFTER TRANSFER. VALIENTE IN PLACE, PATENT, OFF FLOOR. RECTAL TUBE IN PLACE WITH LIQUID STOOL. RESPIRATIONS ARE SHALLOW AT ABOUT 30/MIN. USING 2L O2 NC.
--- NOTE | 2020-11-24 10:36 | NUR ---
SPOKE WITH DR LORRAINE CHEATHAM. HE PLANS TO CALL PATIENT'S DAUGHTER IN LAW, MICHAEL, TO DISCUSS PROGNOSIS ON COMFORT CARE AND POSSIBLITY OF DISCHARGING HOME ON HOSPICE.
--- NOTE | 2020-11-24 12:11 | NUR ---
No non verbal signs of pain noted. attemtpted to get response from patient she did not wake. Comfort blanket placed. pt progressing appears eminent.
--- NOTE | 2020-11-24 13:25 | NUR ---
11/24/20- per chart review with Dr. Garcia, pt has been placed on comfort care and has become non-verbal. FLORI- Francesca has called and wants to talk with Dr. Garcia about potentially taking the pt home on hospice care. However, review of palliative care note, pt potentially emminent. -kerry
--- NOTE | 2020-11-24 18:17 | NUR ---
SHIFT SUMMARY PATIENT COMFORT CARE. DNR WRIST BAND IN PLACE. QUIET IN BED THROUGHOUT SHIFT. MEDICATED FOR PAIN ONCE WHEN PATIENT WAS RESTLESS. OXYGEN IN PLACE FOR COMFORT. ORAL CARE PERFORMED. SPOKE WITH PHYSICIAN AND FAMILY. DESIRE IS TO DISCHARGE HOME WITH HOSPICE. PATIENT BRIEFLY OPENS EYES TO RESPOND TO HER NAME.
--- NOTE | 2020-11-25 01:52 | NUR ---
PATIENT PASSED ENTERED ROOM TO ROUND ON PT AND PROVIDE COMFORT CARE ASSESSMENT @ 0114, NO PULSE NO RESPIRATIONS DETECTED, CONFIRMED W/ ALMA LAWRENCE RN. ATTEMPTED TO CONTACT NEXT OF KIN AND LEFT MESSAGE TO CALL BACK, ATTEMPTED TO CALL ONLY OTHER FAMILY MEMEBER AND ALSO GOT VOICEMAIL, NURSING COLD ROLL PACKER SHEET IRON NOTIFIED, DONATION LINE NOTIFIED, [facility] UPDATED W/ NOTICE FOR ATTENDING PHYSICIAN. WILL CONTINUE TO ATTEMPT CONTACTING FAMILY.
--- NOTE | 2020-11-25 03:42 | NUR ---
WAS ABLE TO GET AHOLD OF THE DAUGHTER IN LAW MICHAEL AT 0307 AND WAS INFORMED OF TOD. SHE CHOSE [facility] IN MORNING SUN. [facility]ED [facility] FOR PICK[facility]. WILL SEND BELONGING WITH PT. SHE STILL HAS A RING ON WELL A WATCH. BELONGINGS INCLUDE A PURSE THAT HAS A CELL PHONE AND WALLET. AND A BAG OF CLOTHES AND SHOES. PT WAS CLEANED UP, LINES AND TUBES WERE REMOVED.
--- NOTE | 2020-11-25 03:45 | NUR ---
BODY CLEANED PT RECTAL TUBE REMOVE, IV REMOVED, CENTRAL LINE REMOVED, BODY CLEANED AND REDRESSED FOR CHIEF CREDIT OFFICER. ALL PERSONAL POSSESSIONS GATHERED AND READY FOR TRANSPORT.
--- NOTE | 2020-11-25 04:19 | NUR ---
FINAL DISCHARGE HOME TRANSPORTED ARRIVED TO WET END OPERATOR PT AND POSSESSIONS, APPROPRIATE FORMS SIGNED, PT TRANSFERRED TO TRANSPORT HANK, DRAPPED OVER PT, PT TAKEN TO HOME.
== END 2020-11-25 04:19 | DRG 871 ==
LOC: ER 14:32 → ICUE 17:15 → ERHOLD 17:15 → ICUE 20:09 → SURS 11-24 01:41
PROVIDERS: Emergency Medicine; Internal Medicine; Internal Medicine Critical Care Medicine; Internal Medicine Pulmonary Disease; Nurse Practitioner Acute Care; Physician Assistant; ADMIT Internal Medicine
PROC: 5A09357 Assistance with Respiratory Ventilation, Less than 24 Consecutive Hours, Continuous Positive Airway Pressure (ICD-10-PCS; principal; 2020-11-20)
PROC: 06HY33Z Insertion of Infusion Device into Lower Vein, Percutaneous Approach (ICD-10-PCS; 2020-11-21)
PROC: 3E033XZ Introduction of Vasopressor into Peripheral Vein, Percutaneous Approach (ICD-10-PCS; 2020-11-21)
DX: A41.51 Sepsis due to Escherichia coli [E. coli] (principal); D61.810 Antineoplastic chemotherapy induced pancytopenia; N17.0 Acute kidney failure with tubular necrosis; J96.01 Acute respiratory failure with hypoxia; I50.23 Acute on chronic systolic (congestive) heart failure; R65.21 Severe sepsis with septic shock; Z66 Do not resuscitate; Z51.5 Encounter for palliative care; C78.7 Secondary malignant neoplasm of liver and intrahepatic bile duct; C78.00 Secondary malignant neoplasm of unspecified lung; C19 Malignant neoplasm of rectosigmoid junction; C77.2 Secondary and unspecified malignant neoplasm of intra-abdominal lymph nodes; E87.2 Acidosis; E87.1 Hypo-osmolality and hyponatremia; E44.0 Moderate protein-calorie malnutrition; N39.0 Urinary tract infection, site not specified; R57.1 Hypovolemic shock; Z20.822 Contact with and (suspected) exposure to COVID-19; D70.1 Agranulocytosis secondary to cancer chemotherapy; E83.51 Hypocalcemia; E86.0 Dehydration; K52.9 Noninfective gastroenteritis and colitis, unspecified; Z68.29 Body mass index [BMI] 29.0-29.9, adult; R50.81 Fever presenting with conditions classified elsewhere; T45.1X5A Adverse effect of antineoplastic and immunosuppressive drugs, initial encounter; L89.312 Pressure ulcer of right buttock, stage 2; N18.9 Chronic kidney disease, unspecified; E11.22 Type 2 diabetes mellitus with diabetic chronic kidney disease; I25.10 Atherosclerotic heart disease of native coronary artery without angina pectoris; I25.2 Old myocardial infarction; Z79.899 Other long term (current) drug therapy; Z95.0 Presence of cardiac pacemaker; Z86.711 Personal history of pulmonary embolism; Z87.891 Personal history of nicotine dependence; Z98.51 Tubal ligation status; X58.XXXA Exposure to other specified factors, initial encounter
CPT/HCPCS: 0097U; 0241U; 36415; 36430; 36556; 51702; 71045; 76770; 80048; 80053; 80202; 81001; 82330; 82803; 83605; 83735; 83880; 84100; 84145; 84484; 85007; 85014; 85018; 85025; 85027; 85610; 85730; 86850; 86900; 86901; 86923; 87040; 87077; 87086; 87186; 93005; 93010; 93308; 93321; 94660; 96374; 96375; 99285-25; A9270; C1751; C9113; J0692; J3010; J3370; J7030; J7040; J7060; J7120; P9016; P9035; P9612; Q5110